=== PATIENT | male | born 1950 | race Caucasian/White ===

== ENCOUNTER 2023-05-27 08:59 | Inpatient (IN) | payer OTHER, BC ==
[2023-05-27] MEDS ORDERED: SODIUM CHLORIDE 1,000 ML IV SCH ×2 (09:15→12:41)
[2023-05-27 10:29] LABS: BASO % 0.6 % (0-2.0); HEMATOCRIT 38.2 % (35.4-49); HEMOGLOBIN 13.1 GM/dL (11.7-16.9); MCH 27.9 pg (25.7-33.7); MCHC 34.3 g/dl (32.0-35.9); MEAN CELL VOLUME 81.3 fl (80-96); MEAN PLT VOLUME 8.1 fl (7.5-11.1); MONO % 8.1 % (3.8-10.2); NEUT % 75.3 % (42.8-82.8); PLATELET COUNT 236 10^3/uL (134-434); RDW 12.7 % (11.9-15.9); WHITE BLOOD COUNT 10.4 K/mm3 (4.0-10.0)
[2023-05-27 10:38] LABS: INR 1.01 (0.83-1.09); PROTHROMBIN TIME (PATIENT) 11.7 SEC (9.7-13.0)
[2023-05-27 10:41] LABS: ACTIVATED PTT 27.3 SECONDS (25.2-36.5)
[2023-05-27] MEDS ORDERED: MECLIZINE HCL 25 MG TABLET (FP) PO ONE (11:02)
[2023-05-27 11:04] LABS: POTASSIUM 4.4 mmol/L (3.5-5.1)
[2023-05-27 11:07] LABS: ALBUMIN 3.9 g/dl (3.4-5.0)
[2023-05-27 11:08] LABS: BLOOD UREA NITROGEN 38.6 mg/dL (7-18)
[2023-05-27 11:10] LABS: CREATININE 3.5 mg/dL (0.55-1.3)
[2023-05-27] MEDS ORDERED: MECLIZINE HCL 25 MG TABLET (FP) ONE (11:11)
[2023-05-27 11:12] LABS: TOT PROT 8.1 g/dl (6.4-8.2)
[2023-05-27 11:13] LABS: BILIRUBIN,TOTAL 0.6 mg/dL (0.2-1)
[2023-05-27 11:39] LABS: PH,URINE 6.5 (5.0-8.0); URINE APPEARANCE CLEAR; URINE BILIRUBIN NEGATIVE (NEGATIVE); URINE COLOR YELLOW; URINE GLUCOSE (UA) NEGATIVE (NEGATIVE); URINE KETONE NEGATIVE (NEGATIVE); URINE LEUK ESTERASE NEGATIVE (NEGATIVE); URINE NITRITE NEGATIVE (NEGATIVE); URINE PROTEIN NEGATIVE (NEGATIVE); URINE UROBILINOGEN 0.2 mg/dL (0.2-1.0)
[2023-05-27] MEDS: amLODIPine BESYLATE 10 MG TABLET (FP) PO SCH (12:56)
[2023-05-27] MEDS: ASPIRIN COATED 81 MG TABLET.EC PO SCH (13:06)
[2023-05-27] MEDS ORDERED: MIDODRINE HCL 5 MG TABLET ONE (14:32)
[2023-05-27] MEDS ORDERED: HEPARIN NA (PORCINE) 5,000 UNITS/ML 1ML VIAL ONE (22:50)
[2023-05-27] MEDS ORDERED: ATORVASTATIN CA 40 MG TABLET (FP) ONE (22:50)
[2023-05-27] MEDS: ATORVASTATIN CA 40 MG TABLET (FP) PO SCH (22:53)
[2023-05-27] MEDS: HEPARIN NA (PORCINE) 5,000 UNITS/ML 1ML VIAL SQ SCH (22:53)
[2023-05-28 07:50] LABS: BASO % 0.5 % (0-2.0); EOS % 1.2 % (0-4.5); HEMATOCRIT 34.8 % (35.4-49); HEMOGLOBIN 11.6 GM/dL (11.7-16.9); LYMPH % 16.6 % (8-40); MCH 27.7 pg (25.7-33.7); MCHC 33.2 g/dl (32.0-35.9); MEAN CELL VOLUME 83.6 fl (80-96); MEAN PLT VOLUME 8.4 fl (7.5-11.1); MONO % 10.3 % (3.8-10.2); NEUT % 71.4 % (42.8-82.8); PLATELET COUNT 199 10^3/uL (134-434); RBC 4.17 M/mm3 (4.00-5.60); RDW 12.6 % (11.9-15.9)
[2023-05-28 08:07] LABS: POTASSIUM 4.1 mmol/L (3.5-5.1)
[2023-05-28 08:08] LABS: CALCIUM 8.1 mg/dL (8.5-10.1)
[2023-05-28 08:09] LABS: BLOOD UREA NITROGEN 44.6 mg/dL (7-18)
[2023-05-28] MEDS: HEPARIN NA (PORCINE) 5,000 UNITS/ML 1ML VIAL SQ SCH ×3 (08:41→22:23)
[2023-05-28] MEDS: ASPIRIN COATED 81 MG TABLET.EC PO SCH ×2 (08:41→09:00)
[2023-05-28] MEDS: amLODIPine BESYLATE 10 MG TABLET (FP) PO SCH ×2 (08:41→09:01)
[2023-05-28] MEDS: CLOPIDOGREL BISULFATE 75 MG TABLET (FP) PO SCH ×2 (08:41→09:01)
[2023-05-28] MEDS: ATENOLOL 50 MG TABLET (FP) PO SCH ×2 (08:41→09:01)
[2023-05-28] MEDS: EZETIMIBE 10 MG TABLET (FP) PO SCH ×2 (08:42→09:01)
[2023-05-28] MEDS ORDERED: DEXTROSE 5%-WATER - 1,000 ML IV SCH (09:30)
[2023-05-28 15:16] VITALS: BMI 23.1
[2023-05-28] MEDS: DEXTROSE 5%-WATER - 1,000 ML IV SCH (15:37)
[2023-05-28] MEDS: ATORVASTATIN CA 40 MG TABLET (FP) PO SCH (22:23)
[2023-05-29] MEDS: DEXTROSE 5%-WATER - 1,000 ML IV SCH ×2 (03:00→18:30)
[2023-05-29 08:01] LABS: BASO % 0.5 % (0-2.0); EOS % 2.5 % (0-4.5); HEMATOCRIT 34.1 % (35.4-49); HEMOGLOBIN 11.2 GM/dL (11.7-16.9); LYMPH % 17.1 % (8-40); MCH 27.4 pg (25.7-33.7); MEAN CELL VOLUME 82.9 fl (80-96); MEAN PLT VOLUME 8.3 fl (7.5-11.1); MONO % 9.8 % (3.8-10.2); NEUT % 70.1 % (42.8-82.8); PLATELET COUNT 189 10^3/uL (134-434); RBC 4.11 M/mm3 (4.00-5.60); RDW 12.4 % (11.9-15.9); WHITE BLOOD COUNT 9.6 K/mm3 (4.0-10.0)
[2023-05-29 08:22] LABS: POTASSIUM 4.2 mmol/L (3.5-5.1)
[2023-05-29 08:24] LABS: BLOOD UREA NITROGEN 53.4 mg/dL (7-18); CALCIUM 7.8 mg/dL (8.5-10.1); MAGNESIUM 2.1 mg/dL (1.8-2.4)
[2023-05-29 08:27] LABS: CREATININE 4.7 mg/dL (0.55-1.3); PHOSPHOROUS 4.5 mg/dL (2.5-4.9)
[2023-05-29 08:29] LABS: BILIRUBIN,TOTAL 0.5 mg/dL (0.2-1)
[2023-05-29 08:31] LABS: ALBUMIN 2.8 g/dl (3.4-5.0); TOT PROT 5.9 g/dl (6.4-8.2)
[2023-05-29] MEDS: HEPARIN NA (PORCINE) 5,000 UNITS/ML 1ML VIAL SQ SCH ×2 (09:08→21:16)
[2023-05-29] MEDS: CLOPIDOGREL BISULFATE 75 MG TABLET (FP) PO SCH (09:08)
[2023-05-29] MEDS: ASPIRIN COATED 81 MG TABLET.EC PO SCH (09:08)
[2023-05-29] MEDS: amLODIPine BESYLATE 10 MG TABLET (FP) PO SCH (09:08)
[2023-05-29] MEDS: EZETIMIBE 10 MG TABLET (FP) PO SCH (09:08)
[2023-05-29] MEDS ORDERED: ACETAMINOPHEN 325 MG TABLET (FP) PO ONE ×2 (13:59→14:24)
[2023-05-29] MEDS ORDERED: LIDOCAINE HCL 2% JELLY 6 ML TP ONE (14:08)
[2023-05-29] MEDS: ATORVASTATIN CA 40 MG TABLET (FP) PO SCH (21:16)
[2023-05-30 07:39] LABS: BASO % 0.5 % (0-2.0); EOS % 1.4 % (0-4.5); HEMATOCRIT 40.5 % (35.4-49); HEMOGLOBIN 13.2 GM/dL (11.7-16.9); LYMPH % 9.2 % (8-40); MCH 26.9 pg (25.7-33.7); MCHC 32.6 g/dl (32.0-35.9); MEAN CELL VOLUME 82.6 fl (80-96); MEAN PLT VOLUME 8.8 fl (7.5-11.1); MONO % 7.5 % (3.8-10.2); NEUT % 81.4 % (42.8-82.8); PLATELET COUNT 223 10^3/uL (134-434); RDW 12.8 % (11.9-15.9); WHITE BLOOD COUNT 14.8 K/mm3 (4.0-10.0)
[2023-05-30 08:01] LABS: CALCIUM 8.6 mg/dL (8.5-10.1)
[2023-05-30 08:02] LABS: ALBUMIN 3.4 g/dl (3.4-5.0); BLOOD UREA NITROGEN 32.4 mg/dL (7-18); MAGNESIUM 1.7 mg/dL (1.8-2.4)
[2023-05-30 08:05] LABS: CREATININE 2.2 mg/dL (0.55-1.3); PHOSPHOROUS 3.8 mg/dL (2.5-4.9)
[2023-05-30 08:06] LABS: BILIRUBIN,TOTAL 0.4 mg/dL (0.2-1); TOT PROT 7.2 g/dl (6.4-8.2)
[2023-05-30] MEDS: amLODIPine BESYLATE 10 MG TABLET (FP) PO SCH (09:12)
[2023-05-30] MEDS: ASPIRIN COATED 81 MG TABLET.EC PO SCH (09:12)
[2023-05-30] MEDS: EZETIMIBE 10 MG TABLET (FP) PO SCH (09:12)
[2023-05-30] MEDS: CLOPIDOGREL BISULFATE 75 MG TABLET (FP) PO SCH (09:13)
[2023-05-30] MEDS: HEPARIN NA (PORCINE) 5,000 UNITS/ML 1ML VIAL SQ SCH ×2 (09:13→21:00)
[2023-05-30] MEDS ORDERED: SODIUM CHLORIDE 0.45% 1,000 ML IV SCH (11:45)
[2023-05-30] MEDS: MAGNESIUM OXIDE 400 MG TABLET (FP) PO ONE ×2 (16:59→17:26)
[2023-05-30] MEDS ORDERED: MAGNESIUM OXIDE 400 MG TABLET (FP) PO ONE (17:30)
[2023-05-30] MEDS: ATORVASTATIN CA 40 MG TABLET (FP) PO SCH (21:00)
[2023-05-31 08:10] LABS: POTASSIUM 3.9 mmol/L (3.5-5.1)
[2023-05-31 08:13] LABS: ALBUMIN 2.9 g/dl (3.4-5.0); BLOOD UREA NITROGEN 23.1 mg/dL (7-18)
[2023-05-31 08:16] LABS: CREATININE 1.5 mg/dL (0.55-1.3)
[2023-05-31 08:17] LABS: BILIRUBIN,TOTAL 0.4 mg/dL (0.2-1); TOT PROT 6.4 g/dl (6.4-8.2)
[2023-05-31] MEDS: amLODIPine BESYLATE 10 MG TABLET (FP) PO SCH (10:27)
[2023-05-31] MEDS: ASPIRIN COATED 81 MG TABLET.EC PO SCH (10:27)
[2023-05-31] MEDS: HEPARIN NA (PORCINE) 5,000 UNITS/ML 1ML VIAL SQ SCH ×2 (10:27→21:34)
[2023-05-31] MEDS: CLOPIDOGREL BISULFATE 75 MG TABLET (FP) PO SCH (10:27)
[2023-05-31] MEDS: EZETIMIBE 10 MG TABLET (FP) PO SCH (10:27)
[2023-05-31] MEDS ORDERED: GLYCERIN 1 RECTAL SUPPOSITORY, ADULT RC PRN ×2 (16:32→16:43)
[2023-05-31] MEDS: SODIUM CHLORIDE 0.45% 1,000 ML IV SCH ×2 (19:38→23:03)
[2023-05-31] MEDS: POLYETHYLENE GLYCOL (HEALTHYLAX) 3350 17 GM PACKET PO SCH (21:34)
[2023-05-31] MEDS: ATORVASTATIN CA 40 MG TABLET (FP) PO SCH (21:35)
[2023-05-31] MEDS ORDERED: DOCUSATE SODIUM 100 MG CAPSULE (FP) PO SCH (22:00)
[2023-06-01 07:15] LABS: BASO % 0.5 % (0-2.0); EOS % 2.5 % (0-4.5); HEMOGLOBIN 12.3 GM/dL (11.7-16.9); LYMPH % 19.1 % (8-40); MCH 26.6 pg (25.7-33.7); MCHC 32.3 g/dl (32.0-35.9); MEAN CELL VOLUME 82.3 fl (80-96); MEAN PLT VOLUME 8.7 fl (7.5-11.1); MONO % 11.7 % (3.8-10.2); NEUT % 66.2 % (42.8-82.8); PLATELET COUNT 216 10^3/uL (134-434); RBC 4.62 M/mm3 (4.00-5.60); RDW 12.7 % (11.9-15.9); WHITE BLOOD COUNT 13.4 K/mm3 (4.0-10.0)
[2023-06-01 07:33] LABS: POTASSIUM 4.2 mmol/L (3.5-5.1)
[2023-06-01 07:38] LABS: CALCIUM 8.2 mg/dL (8.5-10.1)
[2023-06-01 07:39] LABS: BLOOD UREA NITROGEN 24.2 mg/dL (7-18); MAGNESIUM 1.5 mg/dL (1.8-2.4)
[2023-06-01 07:42] LABS: CREATININE 1.5 mg/dL (0.55-1.3)
[2023-06-01 07:43] LABS: BILIRUBIN,TOTAL 0.3 mg/dL (0.2-1); TOT PROT 6.3 g/dl (6.4-8.2)
[2023-06-01] MEDS: ASPIRIN COATED 81 MG TABLET.EC PO SCH (10:05)
[2023-06-01] MEDS: amLODIPine BESYLATE 10 MG TABLET (FP) PO SCH (10:05)
[2023-06-01] MEDS: POLYETHYLENE GLYCOL (HEALTHYLAX) 3350 17 GM PACKET PO SCH (10:05)
[2023-06-01] MEDS: CLOPIDOGREL BISULFATE 75 MG TABLET (FP) PO SCH (10:06)
[2023-06-01] MEDS: EZETIMIBE 10 MG TABLET (FP) PO SCH (10:06)
[2023-06-01] MEDS ORDERED: FINASTERIDE 5 MG TABLET (FP) PO SCH (10:15)
[2023-06-01 12:23] VITALS: BP 121/62; PULSE 68; RESP 14; TEMP 97.9
[2023-06-01] MEDS ORDERED: MAGNESIUM OXIDE 400 MG TABLET (FP) PO ONE (14:15)
== END 2023-06-01 14:10 | disposition home or self-care (01) | DRG 65 ==
LOC: JER 08:59 → INTOOBSV 11:05 → JERBED 11:05 → J2W 05-28 09:57 → OBSVTOIN 05-28 14:22
PROVIDERS: ADMIT Internal Medicine; ATTEND Internal Medicine
PROC: 0T9B70Z Drainage of Bladder with Drainage Device, Via Natural or Artificial Opening (ICD-10-PCS; principal; 2023-05-29)
DX: I63.89 Other cerebral infarction (principal); E87.0 Hyperosmolality and hypernatremia; N17.9 Acute kidney failure, unspecified; G81.91 Hemiplegia, unspecified affecting right dominant side; N13.30 Unspecified hydronephrosis; R47.01 Aphasia; E78.5 Hyperlipidemia, unspecified; R29.810 Facial weakness; Z79.84 Long term (current) use of oral hypoglycemic drugs; I12.9 Hypertensive chronic kidney disease with stage 1 through stage 4 chronic kidney disease, or unspecified chronic kidney disease; I16.0 Hypertensive urgency; E11.22 Type 2 diabetes mellitus with diabetic chronic kidney disease; N18.9 Chronic kidney disease, unspecified; R33.8 Other retention of urine; N40.1 Benign prostatic hyperplasia with lower urinary tract symptoms
CPT/HCPCS: 0241U-QW; 36415; 70450-TC; 70551-TC; 71045-TC-FY; 74176-TC; 76775-TC; 80048; 80053; 80061; 81003; 82550; 82962; 83036; 83735; 84100; 84484; 85025; 85610; 85730; 86850; 86900; 86901; 93005; 93010; 93306-TC; 93880-TC; 97116-GP; 97162-GP; 99285-25; G0378; J1644

== ENCOUNTER 2023-08-05 11:33 | Inpatient (IN) | payer OTHER, BC ==
[2023-08-05] MEDS: SODIUM CHLORIDE 1,000 ML IV SCH (12:35)
[2023-08-05 12:52] LABS: INR 0.98 (0.83-1.09); PROTHROMBIN TIME (PATIENT) 11.4 SEC (9.7-13.0); PROTHROMBIN TIME (PATIENT) 11.6 SEC (9.7-13.0)
[2023-08-05 13:08] LABS: BASO % 1.2 % (0-2.0); HEMATOCRIT 33.8 % (35.4-49); HEMOGLOBIN 11.5 GM/dL (11.7-16.9); LYMPH % 20.6 % (8-40); MCH 27.7 pg (25.7-33.7); MEAN CELL VOLUME 81.6 fl (80-96); MEAN PLT VOLUME 8.3 fl (7.5-11.1); MONO % 6.4 % (3.8-10.2); NEUT % 69.8 % (42.8-82.8); PLATELET COUNT 232 10^3/uL (134-434); RBC 4.14 M/mm3 (4.00-5.60); RDW 13.9 % (11.9-15.9); WHITE BLOOD COUNT 7.3 K/mm3 (4.0-10.0)
[2023-08-05 13:14] LABS: CALCIUM 8.3 mg/dL (8.5-10.1)
[2023-08-05 13:15] LABS: ALBUMIN 3.2 g/dl (3.4-5.0); BLOOD UREA NITROGEN 9.4 mg/dL (7-18)
[2023-08-05 13:17] LABS: CHOLESTEROL 140 mg/dL (50-200)
[2023-08-05 13:18] LABS: LDL CHOLESTEROL (ONLY SJRH) 82 mg/dL (5-100)
[2023-08-05 13:19] LABS: BILIRUBIN,TOTAL 0.3 mg/dL (0.2-1); HDL CHOLESTEROL 45 mg/dL (40-60)
[2023-08-05 13:22] LABS: N-TERMINAL BNP 190.3 pg/ml (5-125)
[2023-08-05] MEDS: INSULIN ASPART SLIDING SCALE (NOVOLOG) 1 VIAL SQ SCH ×2 (16:41→22:23)
[2023-08-05] MEDS ORDERED: ATORVASTATIN CA 80 MG TABLET (FP) ONE (22:17)
[2023-08-05] MEDS: ATORVASTATIN CA 80 MG TABLET (FP) PO SCH (22:23)
[2023-08-06] MEDS: INSULIN ASPART SLIDING SCALE (NOVOLOG) 1 VIAL SQ SCH ×4 (09:17→21:38)
[2023-08-06] MEDS: CLOPIDOGREL BISULFATE 75 MG TABLET (FP) PO SCH (09:35)
[2023-08-06] MEDS: ASPIRIN COATED 81 MG TABLET.EC PO SCH (09:35)
[2023-08-06] MEDS: ENOXAPARIN NA (PORCINE) 40 MG/0.4 ML DISP.SYRIN SQ SCH (09:35)
[2023-08-06] MEDS: TAMSULOSIN HCL 0.4 MG CAP PO SCH (09:35)
[2023-08-06] MEDS: PANTOPRAZOLE SODIUM 40 MG VIAL IVPUSH SCH (09:36)
[2023-08-06] MEDS: FINASTERIDE 5 MG TABLET (FP) PO SCH (09:36)
[2023-08-06 12:41] LABS: BASO % 0.7 % (0-2.0); EOS % 1.9 % (0-4.5); HEMATOCRIT 35.2 % (35.4-49); HEMOGLOBIN 11.8 GM/dL (11.7-16.9); LYMPH % 19.4 % (8-40); MCH 27.4 pg (25.7-33.7); MCHC 33.5 g/dl (32.0-35.9); MEAN CELL VOLUME 81.8 fl (80-96); MEAN PLT VOLUME 7.4 fl (7.5-11.1); MONO % 6.3 % (3.8-10.2); NEUT % 71.7 % (42.8-82.8); PLATELET COUNT 236 10^3/uL (134-434); WHITE BLOOD COUNT 8.5 K/mm3 (4.0-10.0)
[2023-08-06 13:02] LABS: POTASSIUM 3.5 mmol/L (3.5-5.1)
[2023-08-06 13:06] LABS: ALBUMIN 3.2 g/dl (3.4-5.0); BLOOD UREA NITROGEN 10.2 mg/dL (7-18); CALCIUM 8.4 mg/dL (8.5-10.1); MAGNESIUM 1.8 mg/dL (1.8-2.4)
[2023-08-06 13:09] LABS: PHOSPHOROUS 2.8 mg/dL (2.5-4.9)
[2023-08-06 13:10] LABS: CREATININE 0.8 mg/dL (0.55-1.3)
[2023-08-06 13:11] LABS: BILIRUBIN,TOTAL 0.5 mg/dL (0.2-1); TOT PROT 6.6 g/dl (6.4-8.2)
[2023-08-06] MEDS: SODIUM CHLORIDE 1,000 ML IV SCH (15:50)
[2023-08-06] MEDS ORDERED: ATORVASTATIN CA 80 MG TABLET (FP) ONE (21:20)
[2023-08-06] MEDS: ATORVASTATIN CA 80 MG TABLET (FP) PO SCH (21:31)
[2023-08-07] MEDS: INSULIN ASPART SLIDING SCALE (NOVOLOG) 1 VIAL SQ SCH ×4 (07:04→23:02)
[2023-08-07 08:58] LABS: BASO % 0.4 % (0-2.0); EOS % 2.3 % (0-4.5); HEMATOCRIT 33.8 % (35.4-49); HEMOGLOBIN 11.5 GM/dL (11.7-16.9); LYMPH % 20.3 % (8-40); MCH 27.7 pg (25.7-33.7); MCHC 33.9 g/dl (32.0-35.9); MEAN CELL VOLUME 81.8 fl (80-96); MEAN PLT VOLUME 7.8 fl (7.5-11.1); MONO % 8.5 % (3.8-10.2); NEUT % 68.5 % (42.8-82.8); PLATELET COUNT 237 10^3/uL (134-434); RBC 4.14 M/mm3 (4.00-5.60); RDW 13.6 % (11.9-15.9); WHITE BLOOD COUNT 10.3 K/mm3 (4.0-10.0)
[2023-08-07] MEDS: TAMSULOSIN HCL 0.4 MG CAP PO SCH (09:00)
[2023-08-07 09:13] LABS: POTASSIUM 3.6 mmol/L (3.5-5.1)
[2023-08-07 09:16] LABS: CALCIUM 8.4 mg/dL (8.5-10.1)
[2023-08-07 09:17] LABS: ALBUMIN 3.1 g/dl (3.4-5.0); BLOOD UREA NITROGEN 12.9 mg/dL (7-18)
[2023-08-07 09:20] LABS: CREATININE 0.8 mg/dL (0.55-1.3)
[2023-08-07 09:21] LABS: BILIRUBIN,TOTAL 0.4 mg/dL (0.2-1)
[2023-08-07 09:22] LABS: TOT PROT 6.2 g/dl (6.4-8.2)
[2023-08-07] MEDS ORDERED: CLOPIDOGREL BISULFATE 75 MG TABLET (FP) ONE (09:29)
[2023-08-07] MEDS ORDERED: ENOXAPARIN NA (PORCINE) 40 MG/0.4 ML DISP.SYRIN SQ ONE (09:29)
[2023-08-07] MEDS ORDERED: TAMSULOSIN HCL 0.4 MG CAP ONE (09:29)
[2023-08-07] MEDS ORDERED: ASPIRIN COATED 81 MG TABLET.EC ONE (09:29)
[2023-08-07] MEDS ORDERED: PANTOPRAZOLE SODIUM 40 MG VIAL ONE (09:30)
[2023-08-07] MEDS: ASPIRIN COATED 81 MG TABLET.EC PO SCH (10:55)
[2023-08-07] MEDS: CLOPIDOGREL BISULFATE 75 MG TABLET (FP) PO SCH (10:55)
[2023-08-07] MEDS: FINASTERIDE 5 MG TABLET (FP) PO SCH (10:55)
[2023-08-07] MEDS: ENOXAPARIN NA (PORCINE) 40 MG/0.4 ML DISP.SYRIN SQ SCH (10:55)
[2023-08-07] MEDS: PANTOPRAZOLE SODIUM 40 MG VIAL IVPUSH SCH (10:55)
[2023-08-07] MEDS ORDERED: INSULIN (NOVOLOG) ASPART 100 UNITS/ML 10ML VIAL ONE (11:05)
[2023-08-07] MEDS ORDERED: amLODIPine BESYLATE 5 MG TABLET (FP) ONE (14:10)
[2023-08-07] MEDS: SODIUM CHLORIDE 1,000 ML IV SCH (15:30)
[2023-08-07] MEDS: amLODIPine BESYLATE 5 MG TABLET (FP) PO SCH (15:30)
[2023-08-07] MEDS: ATORVASTATIN CA 80 MG TABLET (FP) PO SCH (22:48)
[2023-08-08] MEDS: INSULIN ASPART SLIDING SCALE (NOVOLOG) 1 VIAL SQ SCH ×4 (06:24→22:03)
[2023-08-08] MEDS: amLODIPine BESYLATE 5 MG TABLET (FP) PO SCH (10:03)
[2023-08-08] MEDS: ASPIRIN COATED 81 MG TABLET.EC PO SCH (10:03)
[2023-08-08] MEDS: TAMSULOSIN HCL 0.4 MG CAP PO SCH (10:03)
[2023-08-08] MEDS: FINASTERIDE 5 MG TABLET (FP) PO SCH (10:04)
[2023-08-08] MEDS: PANTOPRAZOLE SODIUM 40 MG VIAL IVPUSH SCH (10:04)
[2023-08-08] MEDS: ENOXAPARIN NA (PORCINE) 40 MG/0.4 ML DISP.SYRIN SQ SCH (10:04)
[2023-08-08] MEDS: CLOPIDOGREL BISULFATE 75 MG TABLET (FP) PO SCH (10:04)
[2023-08-08] MEDS: SODIUM CHLORIDE 1,000 ML IV SCH (12:16)
[2023-08-08] MEDS: ATORVASTATIN CA 80 MG TABLET (FP) PO SCH (21:55)
[2023-08-09] MEDS: INSULIN ASPART SLIDING SCALE (NOVOLOG) 1 VIAL SQ SCH ×4 (06:34→21:56)
[2023-08-09] MEDS: ENOXAPARIN NA (PORCINE) 40 MG/0.4 ML DISP.SYRIN SQ SCH (09:12)
[2023-08-09] MEDS: CLOPIDOGREL BISULFATE 75 MG TABLET (FP) PO SCH (09:12)
[2023-08-09] MEDS: FINASTERIDE 5 MG TABLET (FP) PO SCH (09:12)
[2023-08-09] MEDS: ASPIRIN COATED 81 MG TABLET.EC PO SCH (09:12)
[2023-08-09] MEDS: TAMSULOSIN HCL 0.4 MG CAP PO SCH (09:12)
[2023-08-09] MEDS: amLODIPine BESYLATE 5 MG TABLET (FP) PO SCH (09:13)
[2023-08-09] MEDS: PANTOPRAZOLE SODIUM 40 MG VIAL IVPUSH SCH (09:21)
[2023-08-09 12:51] VITALS: BMI 24.0
[2023-08-09] MEDS: ATORVASTATIN CA 80 MG TABLET (FP) PO SCH (21:55)
[2023-08-10] MEDS: INSULIN ASPART SLIDING SCALE (NOVOLOG) 1 VIAL SQ SCH ×4 (06:15→22:10)
[2023-08-10 07:26] LABS: POTASSIUM 3.8 mmol/L (3.5-5.1)
[2023-08-10 07:27] LABS: BASO % 0.5 % (0-2.0); EOS % 1.9 % (0-4.5); HEMATOCRIT 34.2 % (35.4-49); HEMOGLOBIN 11.6 GM/dL (11.7-16.9); LYMPH % 18.5 % (8-40); MCH 27.7 pg (25.7-33.7); MEAN CELL VOLUME 81.6 fl (80-96); MEAN PLT VOLUME 8.5 fl (7.5-11.1); MONO % 9.9 % (3.8-10.2); NEUT % 69.2 % (42.8-82.8); PLATELET COUNT 277 10^3/uL (134-434); RBC 4.18 M/mm3 (4.00-5.60); WHITE BLOOD COUNT 11.6 K/mm3 (4.0-10.0)
[2023-08-10 07:49] LABS: ALBUMIN 3.3 g/dl (3.4-5.0); BLOOD UREA NITROGEN 15.2 mg/dL (7-18); CALCIUM 8.8 mg/dL (8.5-10.1)
[2023-08-10 07:53] LABS: CREATININE 0.8 mg/dL (0.55-1.3)
[2023-08-10 07:55] LABS: BILIRUBIN,TOTAL 0.3 mg/dL (0.2-1); TOT PROT 6.4 g/dl (6.4-8.2)
[2023-08-10] MEDS: FINASTERIDE 5 MG TABLET (FP) PO SCH (09:23)
[2023-08-10] MEDS: amLODIPine BESYLATE 5 MG TABLET (FP) PO SCH (09:23)
[2023-08-10] MEDS: ASPIRIN COATED 81 MG TABLET.EC PO SCH (09:24)
[2023-08-10] MEDS: ENOXAPARIN NA (PORCINE) 40 MG/0.4 ML DISP.SYRIN SQ SCH (09:24)
[2023-08-10] MEDS: CLOPIDOGREL BISULFATE 75 MG TABLET (FP) PO SCH (09:24)
[2023-08-10] MEDS: TAMSULOSIN HCL 0.4 MG CAP PO SCH (09:25)
[2023-08-10] MEDS: PANTOPRAZOLE SODIUM 40 MG VIAL IVPUSH SCH (14:38)
[2023-08-10] MEDS: SODIUM CHLORIDE 1,000 ML IV SCH (14:38)
[2023-08-10] MEDS: ATORVASTATIN CA 80 MG TABLET (FP) PO SCH (22:10)
[2023-08-11] MEDS: INSULIN ASPART SLIDING SCALE (NOVOLOG) 1 VIAL SQ SCH ×2 (06:05→11:39)
[2023-08-11 06:58] LABS: BASO % 0.5 % (0-2.0); EOS % 1.9 % (0-4.5); HEMATOCRIT 34.1 % (35.4-49); HEMOGLOBIN 11.5 GM/dL (11.7-16.9); LYMPH % 18.5 % (8-40); MCH 27.8 pg (25.7-33.7); MCHC 33.8 g/dl (32.0-35.9); MEAN CELL VOLUME 82.3 fl (80-96); MEAN PLT VOLUME 8.3 fl (7.5-11.1); MONO % 10.8 % (3.8-10.2); NEUT % 68.3 % (42.8-82.8); PLATELET COUNT 285 10^3/uL (134-434); RBC 4.14 M/mm3 (4.00-5.60); RDW 14.1 % (11.9-15.9); WHITE BLOOD COUNT 10.8 K/mm3 (4.0-10.0)
[2023-08-11 07:16] LABS: POTASSIUM 3.7 mmol/L (3.5-5.1)
[2023-08-11 07:20] LABS: CALCIUM 8.1 mg/dL (8.5-10.1)
[2023-08-11 07:21] LABS: ALBUMIN 3.1 g/dl (3.4-5.0); BLOOD UREA NITROGEN 14.8 mg/dL (7-18)
[2023-08-11 07:24] LABS: BILIRUBIN,TOTAL 0.3 mg/dL (0.2-1); TOT PROT 6.4 g/dl (6.4-8.2)
[2023-08-11] MEDS ORDERED: PANTOPRAZOLE 40 MG TABLET PO SCH (10:00)
[2023-08-11] MEDS: ENOXAPARIN NA (PORCINE) 40 MG/0.4 ML DISP.SYRIN SQ SCH (10:23)
[2023-08-11] MEDS: CLOPIDOGREL BISULFATE 75 MG TABLET (FP) PO SCH (10:24)
[2023-08-11] MEDS: amLODIPine BESYLATE 5 MG TABLET (FP) PO SCH (10:24)
[2023-08-11] MEDS: TAMSULOSIN HCL 0.4 MG CAP PO SCH (10:24)
[2023-08-11] MEDS: ASPIRIN COATED 81 MG TABLET.EC PO SCH (10:24)
[2023-08-11] MEDS: FINASTERIDE 5 MG TABLET (FP) PO SCH (10:24)
[2023-08-11 12:50] VITALS: BP 142/62; PULSE 68; RESP 19; TEMP 97.5
== END 2023-08-11 15:27 | disposition home or self-care (01) | DRG 64 ==
LOC: JER 11:33 → UNDOADMOB 16:10 → INTOOBSV 16:10 → JERBED 16:10 → OBSVTOIN 08-07 11:35 → J4W 08-07 20:21
PROVIDERS: ADMIT Internal Medicine; ATTEND Internal Medicine
DX: I63.29 Cerebral infarction due to unspecified occlusion or stenosis of other precerebral arteries (principal); U07.1 COVID-19; R47.01 Aphasia; I10 Essential (primary) hypertension; E78.5 Hyperlipidemia, unspecified; E11.9 Type 2 diabetes mellitus without complications; Z86.73 Personal history of transient ischemic attack (TIA), and cerebral infarction without residual deficits; R29.810 Facial weakness; R26.81 Unsteadiness on feet; N40.0 Benign prostatic hyperplasia without lower urinary tract symptoms
CPT/HCPCS: 0241U-QW; 36415; 70450-TC; 70544-TC; 70547-TC; 70551-TC; 71045-TC-FY; 80053; 80061; 82962; 83036; 83735; 83880; 84100; 84439; 84443; 84484; 85025; 85610; 85730; 93005; 93010; 93306-TC; 93970-TC; 97116-GP; 97162-GP; 99285-25; G0378